=== PATIENT | male | born 1995 | race Two or more races ===

== ENCOUNTER 2019-02-25 13:33 | Emergency (ER) | payer MEDICAID ==
[2019-02-25 13:37] VITALS: BP 137/87
[2019-02-25] MEDS ORDERED: DIPHTH/TETANUS/ACEL. PERTUSSIS IM ONLY ONE (13:45)
[2019-02-25] MEDS ORDERED: SILVER sulfADI 1% CR 20GM TB TP ONE (13:45)
[2019-02-25] MEDS ORDERED: MORPHINE 4 MG/ML SDV IVP ONE (13:45)
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
[2019-02-25] MEDS ORDERED: KETOROLAC 30 MG/ML VIAL IVP ONE (14:10)
[2019-02-25] MEDS ORDERED: SILV20CR2 TP (15:04)
[2019-02-25] MEDS ORDERED: HYDR-653 PO (15:04)
== END 2019-02-25 15:41 | disposition home or self-care (01) ==
LOC: ER 13:59
DX: T21.02XA Burn of unspecified degree of abdominal wall, initial encounter (principal); T22.031A Burn of unspecified degree of right upper arm, initial encounter; T20.06XA Burn of unspecified degree of forehead and cheek, initial encounter; X16.XXXA Contact with hot heating appliances, radiators and pipes, initial encounter
CPT/HCPCS: 90471; 90715; 99283; J1885; J2270